=== PATIENT | female | born 1930 | race Caucasian/White ===

== ENCOUNTER 2016-09-09 12:15 | Inpatient (IN) | payer MEDICARE, OTHER ==
[~2016-09-09] VITALS: Ht 162.6 cm; Wt 55.8 kg
[2016-09-09 17:34] LABS: HEMOGLOBIN 11.8 gm/dl (12.3-15.3); RED BLOOD COUNT 4.13 M/UL (4.00-5.10); WHITE BLOOD COUNT 10.8 K/UL (4.5-11.0)
[2016-09-09] MEDS ORDERED: ASPIRIN EC81 MG PO (20:31)
[2016-09-09] MEDS ORDERED: LEVOTHYROXINE25 MCG PO (20:31)
[2016-09-09] MEDS ORDERED: SERTRALINE HCL50 MG PO (20:32)
[2016-09-09] MEDS ORDERED: RANITIDINE HCL300 MG PO (20:32)
[2016-09-09] MEDS ORDERED: B-122500 MCG PO (20:34)
[2016-09-09] MEDS ORDERED: ICAPS TABLET1 EACH PO (20:35)
[2016-09-09] MEDS ORDERED: QUINAPRIL HCL10 MG PO (20:40)
[2016-09-09] MEDS ORDERED: ATORVASTATIN CA20 MG PO (20:41)
[2016-09-09] MEDS ORDERED: MIRALAX17 GM PO (20:42)
[2016-09-09] MEDS ORDERED: MULTIVITAMINS1 EAC2 PO (20:43)
[2016-09-10 02:24] LABS: HEMOGLOBIN 10.9 gm/dl (12.3-15.3); RED BLOOD COUNT 3.84 M/UL (4.00-5.10)
[2016-09-10 02:25] LABS: WHITE BLOOD COUNT 7.1 K/UL (4.5-11.0)
[2016-09-11 05:25] LABS: RED BLOOD COUNT 3.89 M/UL (4.00-5.10); WHITE BLOOD COUNT 8.2 K/UL (4.5-11.0)
[2016-09-12 05:20] LABS: HEMOGLOBIN 11.1 gm/dl (12.3-15.3); RED BLOOD COUNT 3.83 M/UL (4.00-5.10); WHITE BLOOD COUNT 9.3 K/UL (4.5-11.0)
[2016-09-12 05:39] LABS: BUN/CREATININE RATIO 30 (0-10)
[2016-09-13 06:56] LABS: HEMOGLOBIN 10.4 gm/dl (12.3-15.3); RED BLOOD COUNT 3.66 M/UL (4.00-5.10); WHITE BLOOD COUNT 7.4 K/UL (4.5-11.0)
[2016-09-13 07:18] LABS: BUN/CREATININE RATIO 24 (0-10)
== END 2016-09-14 15:40 | DRG 690 ==
LOC: ER1 12:15 → M/S 15:49 → ZEROF 15:49 → M/S 20:08 → ZEROF 09-14 15:18 → M/S 09-14 15:40
PROVIDERS: Emergency Medicine; Family Medicine; ADMIT Internal Medicine
DX: N30.00 Acute cystitis without hematuria (principal); S32.502A Unspecified fracture of left pubis, initial encounter for closed fracture; R55 Syncope and collapse; W19.XXXA Unspecified fall, initial encounter; Y92.019 Unspecified place in single-family (private) house as the place of occurrence of the external cause; I25.10 Atherosclerotic heart disease of native coronary artery without angina pectoris; I65.23 Occlusion and stenosis of bilateral carotid arteries; I10 Essential (primary) hypertension; E07.9 Disorder of thyroid, unspecified; M19.90 Unspecified osteoarthritis, unspecified site; M48.02 Spinal stenosis, cervical region; M48.06 Spinal stenosis, lumbar region; M47.22 Other spondylosis with radiculopathy, cervical region; M47.26 Other spondylosis with radiculopathy, lumbar region; E53.8 Deficiency of other specified B group vitamins; R27.0 Ataxia, unspecified; F01.50 Vascular dementia, unspecified severity, without behavioral disturbance, psychotic disturbance, mood disturbance, and anxiety; Z51.89 Encounter for other specified aftercare; E78.5 Hyperlipidemia, unspecified; M62.50 Muscle wasting and atrophy, not elsewhere classified, unspecified site; F32.9 Major depressive disorder, single episode, unspecified; K59.00 Constipation, unspecified; Z95.1 Presence of aortocoronary bypass graft; Z98.890 Other specified postprocedural states; Z90.49 Acquired absence of other specified parts of digestive tract; Z87.891 Personal history of nicotine dependence; Z82.49 Family history of ischemic heart disease and other diseases of the circulatory system; Z82.3 Family history of stroke; Z79.82 Long term (current) use of aspirin; Z79.899 Other long term (current) drug therapy
CPT/HCPCS: ECHO; 36415; 70450; 71010; 72125; 73502; 76536; 80048; 80053; 81001; 82550; 82553; 84439; 84443; 84484; 85025; 85027; 87077; 87086; 87186; 93005; 93306; 93880; 97110; 97116; 97530; 97535; 99285; G0378; J0696; J2550; J7030; Q0162

== ENCOUNTER → 2016-11-13 | Outpatient (CLI) | payer MEDICARE, OTHER ==
[~2016-11-13] VITALS: Ht 162.6 cm; Wt 55.8 kg
[~2016-11-13] MED LIST: ASPIRIN EC81 MG PO; ATORVASTATIN CA20 MG PO; B-122500 MCG PO; ICAPS TABLET1 EACH PO; LEVOTHYROXINE25 MCG PO; MIRALAX17 GM PO; MULTIVITAMINS1 EAC2 PO; QUINAPRIL HCL10 MG PO; RANITIDINE HCL300 MG PO; SERTRALINE HCL50 MG PO
== END ==
LOC: OPSV 14:22
DX: M48.48XA Fatigue fracture of vertebra, sacral and sacrococcygeal region, initial encounter for fracture (principal); M81.0 Age-related osteoporosis without current pathological fracture
CPT/HCPCS: 96372